=== PATIENT | male | born 1950 | race Caucasian/White ===

== ENCOUNTER 2024-01-12 13:17 | Outpatient (OUT) | payer OTHER, MEDICAID, SELFPAY | END 2024-01-12 13:18 | disposition home or self-care (01) | LOC: WC 13:18 | PROVIDERS: PCP Podiatrist Foot & Ankle Surgery; Visit Provider Physician Assistant | DX: R60.0 Localized edema (principal); L60.3 Nail dystrophy; E11.40 Type 2 diabetes mellitus with diabetic neuropathy, unspecified; E11.65 Type 2 diabetes mellitus with hyperglycemia; G90.09 Other idiopathic peripheral autonomic neuropathy | CPT/HCPCS: 11720 ==

== ENCOUNTER 2024-01-31 15:28 | Outpatient (OUT) | payer OTHER, MEDICAID, SELFPAY | END 2024-01-31 15:29 | disposition home or self-care (01) | LOC: WC 15:28 | PROVIDERS: PCP Podiatrist Foot & Ankle Surgery; Visit Provider Podiatrist Foot & Ankle Surgery | DX: Z89.612 Acquired absence of left leg above knee (principal) | CPT/HCPCS: G0463 ==

== ENCOUNTER 2025-03-28 13:51 | Outpatient (OUT) | payer OTHER, MEDICAID, SELFPAY ==
--- OUTSIDE RECORDS SUMMARY | 2025-03-22 15:41 | XMS_ITS | Continuity of Care Document ---
Author Organization [facility] Address [address] [place] [address] Phone Care Team Providers Care Line Decorator Name Role Phone Daisha Cadet DO Primary Care Provider Maye Villanueva MD Attending Provider Natasha Hernandez MD Attending Provider Ashley Zaldivar [employer] Attending Provider Daisha Cadet DO Other Provider Wilfred Trivedi MD Attending Provider [phone] Keegan Riddle MD Emergency Provider Mariposa Oliver Attending Provider Jamil Michaud MD Admit Provider Jamil Michaud MD Attending Provider Mariposa Oliver Other Provider Wilfred Trivedi MD Other Provider [phone] Care Teams Patient Care Team Team Status: Active Member Role Status Dates Daisha Cadet DO Primary Care Provider Active Visit Care Team Team Status: Active Member Role Status Dates Daisha Cadet DO Primary Care Provider Active Start: December 25, 2024 Maye Villanueva MD Attending Provider Active Star t: December 25, 2024 Visit Care Team Team Status: Active Member Role Status Dates Daisha Cadet DO Primary Care Provider Active Start: January 24, 2025 Natasha Hernandez MD Attending Provider Active Star t: January 24, 2025 Visit Care Team Team Status: Inactive Member Role Status Dates Daisha Cadet DO Primary Care Provider Active Start: March 05, 2025 End: March 05, 2025 OMARI AmbroseC Attending Provider Active Start: March 05, 2025 End: March 05, 2025 Visit Care Team Team Status: Active Member Role Status Dates Daisha Cadet DO Primary Care Provider Active Start: March 14, 2025 Daisha Cadet DO Other Provider Active S tart: March 14, 2025 Wilfred Trivedi MD Attending Provider Active S tart: March 14, 2025 Visit Care Team Team Status: Inactive Member Role Status Citlaly Cadet DO Primary Care Provider Active Start: March 20, 2025 End: March 20, 2025 Wilfred Trivedi MD Attending Provider Active S tart: March 20, 2025 End: March 20, 2025 Visit Care Team Team Status: Active Member Role Status Citlaly Cadet DO Primary Care Provider Active Start: March 20, 2025 Keegan Riddle MD Emergency Provider Active St art: March 20, 2025 Arnav Oliver MD Attending Provider Active Start : March 20, 2025 Visit Care Team Team Status: Inactive Member Role Status Citlaly Cadet DO Primary Care Provider Active Start: March 21, 2025 End: March 22, 2025 Keegan Riddle MD Emergency Provider Active St art: March 21, 2025 End: March 22, 2025 Jaiml Michaud MD Admit Provider Active Start: Michelle gutierrez 2024 End: March 22, 2025 Jamil Michaud MD Attending Provider Active Star t: March 21, 2025 End: March 22, 2025 Arnav Oliver MD Other Provider Active Start: Se mendoza 2024 End: March 22, 2025 Wilfred Trivedi MD Other Provider Active Start : March 21, 2025 End: March 22, 2025 Chief Complaint and Reason for Visit Chief Complaint Admit Date 1 year follow up; ESRD March 05 12:53pm R10.33 March 14, 2025 10:59am Chronic Kidney Disease March 20, 025 2:34pm sent over d/t fistula March 20 7:56pm sent over d/t fistula March 21 10:24am Reason for Visit Admit Date End-stage renal disease on hemodialysis March 05, 2025 12:53pm [facility] fistula malfunction [facility] 2024 10:59am Arteriovenous shunt malfunction [facility] 2024 10:24am Benign hypertension with end-stage renal disease March 21, 2025 10:24am [facility] End-stage renal disease (ESRD) March 21, 2025 10:24am End-stage renal disease on hemodialysis March 21, 2025 10:24am Secondary hyperparathyroidism March 21, 2025 10:24am Type 2 diabetes mellitus wit h diabetic chronic kidney disease March 21, 2025 10:24am Anemia of renal disease March 21, 2025 10:24am Reason for Referral Referring Provider Name Referring Provider Address Referring Provider Phone Referral Date Requested Appointment Date Referral Reason Wilfred Colliermarv [address] [phone] Work Phone: Call for appointment. You will need your sutures removed in 2 to 3 weeks. Jamil Michaud [address] [place] [address] Work Phone: Call if needed. Call for appointment. You will need your sutures removed in 2 to 3 weeks. Call if needed. Allergies, Adverse Reactions, Alerts Allergen Type Severity Reaction Last Updated Verified Status No Known Allergies Allergy Unknown Septem 2024 8:06pm Yes Active Social History Smoking Status Status Start Date End Date Date of Observa tion [facility] Observation Status Observation Response Date of Response Legal Sex Male (finding) Sex Assigned At Male [birth year] Social History Assessments Assessment Value Date Recorded SDOH Follow up March 22, 2025 4:19pm Question Answer Date Recorded Has the SDOH screening changed since admission? N March 22, 2025 4:19pm Family History Relationship Condition Age at Onset Recorded Date/T tiny family member Diabetes mellitus Unknown brother Malignant neoplasm of prostate Unknown Hypertension Unknown sister Hypertension Unknown father Parkinson's disease Unknown mother Lupus Unknown brother Hypertension Unknown sister Hypertension Unknown Problems Active Problems Medical Problem Onset Date Status Comments AMANDA (acute kidney injury) Unknown Active End-stage renal disease on hemodialysis Unknown A ctive Type 2 myocardial infarction Unknown Active Pressure injury of left buttock, stage 2 Unknown Active Low serum prealbumin Unknown Active Severe hyperglycemia due to diabetes mellitus Unknown Active Status 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 Unknown Active Insomnia Unknown Active Type 2 diabetes mellitus wit h diabetic chronic kidney disease Unknown Active Impaired mobility and ADLs Unknown Active DKA (diabetic ketoacidoses) Unknown Active Secondary hyperparathyroidism Unknown Active Sleep apnea Unknown Active has machine but not using Complications of internal or thopedic device, implant, and graft Unknown Active Anaerobic bacteremia Unknown Active Dialysis AV fistula malfunction Unknown Active Diabetes Unknown Active Diabetes mellitus Unknown Active HTN (hypertension), benign Unknown Active Arteriovenous shunt malfunction Unknown Active AV fistula Unknown Active left Dysuria Unknown Active Jaundice Unknown Active Benign hypertension with end -stage renal disease Unknown Active Rib contusion Unknown Active Postoperative pain Unknown Active Elevated troponin Unknown Active DVT prophylaxis Unknown Active Postoperative anemia Unknown Active PAD (peripheral artery disease) Unknown Active Fungal dermatitis Unknown Active Post-inflammatory hyperpigmentation Unknown Activ e Wheelchair dependence Unknown Active Dermatitis associated with moisture Unknown Activ e Anemia of renal disease Unknown Active Anemia of renal disease Unknown Active Impaired mobility Unknown Active Cholestasis Unknown Active End-stage renal disease (ESRD) Unknown Active Inactive/Resolved Problems Medical Problem Onset Date Status Comments UTI (urinary tract infection) Unknown Resolved Acute cystitis Unknown Resolved Left above-knee amputee Unknown Resolved COVID-19 Unknown Resolved Upper respiratory infection Unknown Resolved Complicated urinary tract infection Unknown Resol melquiades Rash Unknown Resolved Leukocytosis Unknown Resolved Atypical chest pain Unknown Resolved Acute metabolic encephalopathy Unknown Resolved Sepsis Unknown Resolved Viral upper respiratory infection Unknown Resolve d Acute UTI Unknown Resolved Change in mental status Unknown Resolved Asymptomatic hypertension Unknown Resolved Bedsore Unknown Resolved Nausea and vomiting Unknown Resolved Nausea and vomiting Unknown Resolved Nausea & vomiting Unknown Resolved Abdominal pain Unknown Resolved Hypertension Unknown Resolved Constipation Unknown Resolved Cellulitis of left foot Unknown Resolved Hyperkalemia Unknown Resolved Lactic acidosis Unknown Resolved Medications Medication Status Dose Units Route Directions Qty Days St art Date Stop Date End Date Instructions Adherence Amlodipine 10 mg tablet Discont inued 5 MG PO Daily 45 90 September 06, 2023 4:47pm November 16, 2023 6:20a m Pt states he only takes medication if systolic blood pressure is greater than 140mmhg, pt states that he does not take medication on days he has dialysis, MWF. Amlodipine 10 mg tablet Discont inued 0 .ROUTE .COMPLEX 45 Sept2023 4:35pm October 22, 2024 1:39p m TAKE 1/2 TABLET DAILY FOR HTN Furosemide 40 mg tablet Discont inued 0 .ROUTE .COMPLEX 180 Novemb er 2023 10:35p m September 09, 2024 12:51 pm TAKE 1 TABLET BY MOUTH TWICE A DAY Furosemide 40 mg tablet Discont inued 0 .ROUTE .COMPLEX 180 September 09, 2024 12:50p m November 27, 2024 4:15p m TAKE 1 TABLET BY MOUTH TWICE A DAY Furosemide 40 mg tablet Active 0 .ROUTE .COMPLEX 360 November 27, 2024 4:15pm TAKE 2 TABLETS BY MOUTH TWICE A DAY Complies with drug therapy Losartan 50 mg tablet Discont inued 50 MG PO Daily Novemb er 2018 1:00am 2018 3:23p m Docusate Sodium 100 mg Capsule Discont inued 100 MG PO Twice daily as needed for Constipatio n 0 er 2018 1:00am Dece 2018 10:17 am Aspirin 81 mg Tablet,Chew able Discont inued 81 MG PO Daily 0 30 b er 2018 1:00am osiris 2018 7:49p m Polyethylen e Glycol 3350 (Miralax) 17 gram Powder In Packet Discont inued 17 GM PO Daily 0 30 b er 2018 1:00am osiris 2018 7:49p m Insulin Detemir U-100 (Levemir Flextouch U100 Insulin) 100 unit/mL (3 mL) insulin pen Discont inued 15 UNIT SUBCUT Every evening er 2018 1:00am [facility] osiris 2018 10:17 am Insulin Aspart U-100 (Novolog Flexpen U-100 Insulin) 100 unit/mL (3 mL) Insulin Pen Discont inued 0 UNITS SUBCUT 3X/Day with meals and bedtime Protocol: *If the corrective scale dose has been administere d within the past 4 hours, do not use corrective scale again unless approved by prescriber* Condition: Corrective Scale #3 (TDI 51-75 UNITS) Condition: = Dose/Route: = Instruction s: = Condition: Fingerstick Blood Glucose Dose/Route: Insulin Units Condition: 150-199 mg/dl Dose/Route: 3 unit Condition: 200-249 mg/dl Dose/Route: 4 unit Condition: 250-299 mg/dl Dose/Route: 7 unit Condition: 300-349 mg/dl Dose/Route: 10 unit Condition: 350-399 mg/dl Dose/Route: 12 unit Condition: greater than or = 400 mg/dl Dose/Route: 14 unit Instruction s: Call Provider er 2018 1:00am Decem osiris 2018 10:17 am Please contact the information source for Protocol details. Piperacilli n-Tazobacta m (Zosyn) 2.25 gram recon soln Discont inued 2.25 GM IV Twice daily 1 1 b er 2018 1:00am Decem osiris 2018 10:17 am TOTAL OF 3 DOSES LEFT Amlodipine 10 mg tablet Discont inued 5 MG PO Daily December 17, 2020 12:00a m September 06, 2023 4:48p m Pt states he only takes medication if systolic blood pressure is greater than 140mmhg, pt states that he does not take medication on days he has dialysis, MWF. Sodium Zirconium Cyclosilica te (Lokelma) 10 gram powder in packet Discont inued 10 GM PO Daily December 17, 2020 12:00a m September 02, 2023 10:30 pm Ergocalcife rol (Vitamin D2) 50,000 unit capsule Discont inued 19396 UNIT PO Daily December 17, 2020 9:02pm Octob er 2020 3:55p m Furosemide 40 mg tablet Discont inued 40 MG PO Twice daily December 17, 2020 9:03pm Novem 2023 10:35 pm Tamsulosin 0.4 mg capsule Discont inued 0.4 MG PO Daily February 01, 2022 12:00a m September 02, 2023 10:30 pm Oxycodone 5 mg Tablet Discont inued 10 MG PO Every 6 hours as needed for Pain Scale 6 - 10 20 8 February 01, 2022 September 21, 2023 2:06p m Insulin Degludec (Tresiba Flextouch U-100) 100 unit/mL (3 mL) insulin pen Active 30 UNIT SUBCUT Daily at bedtime September 02, 2023 1:00am Complies with drug therapy Calcium Acetate 667 mg tablet Discont inued 667 MG PO Three times daily September 19, 2023 12:00a m October 22, 2024 12:53 pm take 1 tab with meals Ciprofloxac in Hcl (Cipro) 500 mg tablet Discont inued 500 MG PO Daily September 21, 2023 12:00a m October 27, 2023 12:11 pm administer dose at least 2 hrs before/6 hrs after dairy products, calcium, zinc, and/or iron-containi ng products Take one at bedtime the first night, then one tablet daily. Atorvastati n 20 mg tablet Discont inued 20 MG PO Every morning October 27, 2023 12:00a m October 22, 2024 1:39p m Doxycycline Hyclate 100 mg capsule Discont inued 100 MG PO Twice daily 10 5 October 27, 2023 12:00a m November 16, 2023 6:19a m Ondansetron 4 mg tablet,disi ntegrating Discont inued 4 MG PO Q6H as needed for nausea and vomiting October 27, 2023 12:00a m November 16, 2023 6:20a m Amitriptyli ne 25 mg tablet Discont inued 25 MG PO Daily Dece er 2023 1:00am October 22, 2024 1:39p m Triamcinolo ne Acetonide 0.1 % ointment Discont inued 1 APPLIC TOPICA L Twice daily 30 Decemb er 2023 1:00am Decem osiris 2023 1:00a m 2024 1:01a m Nystatin 100,000 unit/gram cream Discont inued 1 APPLIC TOPICA L Twice daily 2024 1:00am October 22, 2024 12:52 pm Azithromyci n (Zithromax) 250 mg tablet Discont inued 0 PO .COMPLEX 6 October 24, 2024 12:00a m Septe er 2024 2:59p m For 250 mg dose pack: take 500 mg today (day 1), then 250 mg for 4 days (days 2-5) Polyethylen e Glycol 3350 (Miralax) 17 gram powder in packet Discont inued 17 GM PO Every morning [facility] er 2018 7:49pm [facility] osiris 2018 10:17 am Aspirin 81 mg tablet,chew able Discont inued 81 MG PO Every morning [facility] er 2018 7:49pm [facility] osiris 2018 10:17 am Aspirin 81 mg Tablet,Chew able Discont inued 81 MG PO Every morning 30 [facility] er 2018 1:00am December 17, 2020 8:59p m Insulin Aspart U-100 (Novolog Flexpen U-100 Insulin) 100 unit/mL (3 mL) Insulin Pen Discont inued 0 UNITS SUBCUT 3X/Day with meals and bedtime Protocol: *If the corrective scale dose has been administere d within the past 4 hours, do not use corrective scale again unless approved by prescriber* Condition: Corrective Scale #2 (TDI 26-50 UNITS) Condition: = Dose/Route: = Instruction s: = Condition: Fingerstick Blood Glucose Dose/Route: Insulin Units Condition: 150-199 mg/dl Dose/Route: 2 unit Condition: 200-249 mg/dl Dose/Route: 3 unit Condition: 250-299 mg/dl Dose/Route: 5 unit Condition: 300-349 mg/dl Dose/Route: 7 unit Condition: 350-399 mg/dl Dose/Route: 8 unit Condition: greater than or = 400 mg/dl Dose/Route: 9 unit Instruction s: Call Provider 10 [facility] 2018 1:00am Oct er 2020 4:00p m Please contact the information source for Protocol details. Insulin Detemir U-100 (Levemir Flextouch U-100 Insuln) 100 unit/mL (3 mL) Insulin Pen Discont inued 22 UNITS SUBCUT Every evening 10 [facility] er 2018 1:00am Oct er 2020 4:00p m Polyethylen e Glycol 3350 (Miralax) 17 gram Powder In Packet Discont inued 17 GM PO Every morning 30 [facility] 2018 1:00am December 17, 2020 9:01p m Amlodipine 5 mg Tablet Discont inued 5 MG PO Daily 30 [facility] er 2018 1:00am December 17, 2020 8:59p m Balsam Bushra-Beaver Oil (Venelex) Ointment Discont inued 1 APPLIC TOPICA L Three times daily 5 [facility] 2018 1:00am December 17, 2020 9:01p m Calcium Acetate(Pato sphat Bind) 667 mg Capsule Discont inued 1334 MG PO 3x/Day with meals 90 [facility] 2018 1:00am December 17, 2020 9:00p m Darbepoetin Luis In Polysorbat (Aranesp (In Polysorbate )) 40 mcg/mL Solution Discont inued 40 MCG IV-PUS H Mo@0900 0 [facility] 2018 1:00am December 17, 2020 8:59p m Furosemide 40 mg Tablet Discont inued 40 MG PO BID@0800,16 00 30 [facility] 2018 1:00am December 17, 2020 9:03p m Sennosides (Senna Lax) 8.6 mg Tablet Discont inued 2 TAB PO DAILY@12 as needed for If no BM in 2 days 60 [facility] er 2018 1:00am December 17, 2020 9:01p m Heparin (Porcine) 1,000 unit/mL Solution Discont inued 1000 UNIT IV PRN as needed for Dialysis 0 [facility] 2018 1:00am December 17, 2020 9:01p m Heparin (Porcine) 1,000 unit/mL Solution Discont inued 4100 UNIT IV PRN as needed for Dialysis 0 [facility] 2018 1:00am December 17, 2020 9:01p m Heparin (Porcine) 1,000 unit/mL Solution Discont inued 2000 UNIT IV PRN as needed for Dialysis 0 [facility] 2018 1:00am December 17, 2020 9:01p m Trazodone 50 mg Tablet Discont inued 50 MG PO Daily at bedtime as needed for Insomnia 20 [facility] 2018 1:00am December 17, 2020 9:01p m Hydrocortis one 1 % Cream Discont inued 1 APPLIC TOPICA L Three times daily as needed for Itching 5 [facility] 2018 1:00am December 17, 2020 9:01p m Diphenhydra mine Hcl 25 mg Capsule Discont inued 25 MG PO Q6H as needed for Itching 30 [facility] 2018 1:00am December 17, 2020 8:59p m Docusate Sodium 100 mg Capsule Discont inued 100 MG PO Twice daily 60 [facility] er 2018 1:00am December 17, 2020 9:01p m Omeprazole 20 mg Capsule,Del ayed Release(Dr/ Ec) Discont inued 40 MG PO Daily 30 [facility] 2018 1:00am December 17, 2020 9:01p m Ergocalcife rol (Vitamin D2) 50,000 unit Capsule Discont inued 19959 UNIT PO Q7D 4 [facility] 2018 1:00am December 17, 2020 9:02p m Alum-Mag Hydroxide-S imeth (Mag-Al Plus) 200-200-20 mg/5 mL Suspension Discont inued 30 ML PO Q4H as needed for Indigestion 30 [facility] er 2018 1:00am December 17, 2020 9:01p m Ondansetron 4 mg Tablet,Disi ntegrating Discont inued 4 MG PO Every 6 hours as needed for Nausea And Vomiting 60 [facility] er 2018 1:00am December 17, 2020 9:01p m Metoclopram zeke Hcl 10 mg Tablet Discont inued 5 MG PO Three times daily as needed for nausea 60 Decemb er 2018 1:00am December 17, 2020 9:01p m Oxycodone 5 mg Tablet Discont inued 5 MG PO Q4H as needed for Severe Pain 30 7 Dece er 2018December 17, 2020 9:01p m Cholecalcif juanjose (Vitamin D3) (Vitamin D3) 50 mcg (2,000 unit) Tablet Discont inued 50 MCG PO Daily [facility] 2020 12:00a m September 02, 2023 10:26 pm Insulin Aspart U-100 (Novolog Flexpen U-100 Insulin) 100 unit/mL (3 mL) insulin pen Active 1 slidin g scale dose SUBCUT THREE TIMES DAILY WITH MEALS Protocol: *If the corrective scale dose has been administere d within the past 4 hours, do not use corrective scale again unless approved by prescriber* Condition: Corrective Scale #2 (TDI 26-50 UNITS) Condition: = Dose/Route: = Instruction s: = Condition: Fingerstick Blood Glucose Dose/Route: Insulin Units Condition: 150-199 mg/dl Dose/Route: 2 unit Condition: 200-249 mg/dl Dose/Route: 3 unit Condition: 250-299 mg/dl Dose/Route: 5 unit Condition: 300-349 mg/dl Dose/Route: 7 unit Condition: 350-399 mg/dl Dose/Route: 8 unit Condition: greater than or = 400 mg/dl Dose/Route: 9 unit Instruction s: Call Provider [facility] 2020 4:00pm Please contact the information source for Protocol details. Complies with drug therapy Insulin Detemir U-100 (Levemir Flextouch U-100 Insuln) 100 unit/mL (3 mL) insulin pen Discont inued 30 UNITS SUBCUT Every evening [facility] 2020 4:00pm September 19, 2023 11:31 am Metolazone 2.5 mg tablet Discont inued 2.5 MG PO every Tuesday, Tuesday[facility] 12[facility] September 02, 2023 10:29 pm Ferrous Sulfate 325 mg (65 mg iron) tablet Discont inued 325 MG PO every Tuesday, Tuesday, and [facility] 12:00a m September 02, 2023 10:26 pm Amlodipine 10 mg tablet Discont inued 5 MG PO Daily as needed for htn November 16, 2023 12:00a m [facility] 2023 4:35p m Pt states he only takes medication if systolic blood pressure is greater than 140mmhg, pt states that he does not take medication on days he has dialysis, MWF. Oxycodone-A cetaminophe n (Percocet) 5-325 mg tablet Discont inued 1 TAB PO Every 8 hours as needed for pain 14 7 November 17, 2023 October 22, 2024 12:52 pm Calcium Acetate(Pato sphat Bind) 667 mg capsule Active 2001 MG PO 3 times per day with meals October 22, 2024 12:00a m Complies with drug therapy Benzonatate 100 mg capsule Discont inued 100 MG PO Twice daily as needed for cough 10 5 October 22, 2024 12:[facility]a [facility] 2:59p m Fluticasone Propionate (Flonase Allergy Relief) 50 mcg/actuati on spray,suspe nsion Discont inued 1 SPRAY INTRAN JAVI Twice daily as needed for nasal congestion 16 7 October 22, 2024 12:00[facility]24 3:00p m administer into each nostril Immunizations Immunization Event Date Not Given Reason Dose Number Operations Director Lot Number Vaccine Information Statement (VIS) Detail Administration Location COVID-19 mRNA-1273 (Moderna) August 21, 2020 [id number] [facility] COVID-19 mRNA-1273 (Moderna) May 19, 2021 COVID-19 mRNA-1273 (Moderna) January 26, 2022 COVID-19 mRNA-1273 (Moderna) September 18, 2020 [id number] [facility] Medical Equipment Device Date Implanted Date Explanted Device Deta ils Cardiovascular patch, animal-derived November 15, 2023 MISAEL: [id number] Issuing Agency: [facility] Device Id: [id number] Expiration Date: 2024-06-18 Lot Number: [id number] Non-neurovascular embolization coil November 03, 2021 MISAEL: [id number] Issuing Agency: [facility] Device Id: [id number] Expiration Date: 2026-07-07 Lot Number: [id number] Non-neurovascular embolization coil November 03, 2021 MISAEL: [id number] Issuing Agency: [facility] Device Id: [id number] Expiration Date: 2026-07-07 Lot Number: [id number] Non-neurovascular embolization coil November 03, 2021 MISAEL: ()[id number] Issuing Agency: [facility] Device Id: [id number] Expiration Date: 2025-11-07 Lot Number: [id number] Non-neurovascular embolization coil November 03, 2021 MISAEL: ()[id number] Issuing Agency: [facility] Device Id: [id number] Expiration Date: 2025-11-07 Lot Number: [id number] Non-neurovascular embolization coil November 03, 2021 MISAEL: [id number] Issuing Agency: [facility] Device Id: [id number] Expiration Date: 2026-05-06 Lot Number: [id number] May 24, 2019 Double-lumen haemodialysis catheter, implantable November 16, 2023 MISAEL: [id number] Issuing Agency: [facility] Device Id: [id number] Expiration Date: 2026-03-03 Lot Number: [id number] May 14, 2019 May 24, 2019 Procedures Procedure Date Performed Status OR AV Fistula Dialysis Graft (Left) March 202024 4:55pm completed IR Catheter Dialysis Insertion (Right) March 21, 2025 10:05am completed OR AV Fistula Dialysis Graft (Left) March 222024 8:30am completed Relevant Diagnostic Tests and/or Laboratory Data Laboratory Results Test Collection Date/Time Result Date/Time Result Interpretation Reference Range Result Comment Performing Site Corrected White Blood Count March 20, 2025 3:19pm March 20, 2025 3:31pm 7.5 10*3/uL 4.1-10.5 [facility] [id number] [address] [id number] Corrected White Blood Count March 22, 2025 6:58am March 22, 2025 7:12am 6.8 10*3/uL 4.1-10.5 [facility] [id number] [address] [place], [place] [id number] Uncorrect ed WBC Count March 20, 2025 3:19pm March 20, 2025 3:31pm 7.5 10*3/uL 4.1-10.5 [facility] [id number] [address] [id number] Uncorrect ed WBC Count March 22, 2025 6:58am March 22, 2025 7:12am 6.8 10*3/uL 4.1-10.5 [facility] [id number] [address] [place], [place] [id number] Red Blood Count March 20, 2025 3:19pm March 20, 2025 3:31pm 3.91 10*6/uL 3.90-5.60 [facility] [id number] [address] [id number] Red Blood Count March 22, 2025 6:58am March 22, 2025 7:12am 3.59 10*6/uL Below low normal 3.90-5.60 [facility] [id number] [address] [id number] Hemoglobi n March 20, 2025 3:19pm March 20, 2025 3:31pm 11.6 g/dL Below low normal 13.0-17.0 [facility] [facility] [id number] [address] [id number] Hemoglobi n March 22, 2025 6:58am March 22, 2025 7:12am 10.7 g/dL Below low normal 13.0-17.0 [facility] [id number] [address] [facility] [address] Hematocri t March 20, 2025 3:19pm March 20, 2025 3:31pm 35.0 % Below low normal 38.8-50.0 [facility] [id number] [address] [facility] [address] Hematocri t March 22, 2025 6:58am March 22, 2025 7:12am 31.8 % Below low normal 38.8-50.0 [facility] [id number] [address] [facility] [address] Mean Corpuscul ar Volume March 20, 2025 3:19pm March 20, 2025 3:31pm 89.5 fL 83.5-101 [facility] [id number] [address] [facility] [address] Mean Corpuscul ar Volume March 22, 2025 6:58am March 22, 2025 7:12am 88.6 fL 83.5-101 [facility] [id number] [address] [facility] [address] Mean Corpuscul ar Hemoglobi n March 20, 2025 3:19pm March 20, 2025 3:31pm 29.6 pg 27.5-35.2 [facility] [id number] [address] [facility] [address] Mean Corpuscul ar Hemoglobi n March 22, 2025 6:58am March 22, 2025 7:12am 29.7 pg 27.5-35.2 [facility] [id number] [address] [facility] [address] Mean Corpuscul ar Hemoglobi n Concent March 20, 2025 3:19pm March 20, 2025 3:31pm 33.0 g/dL 32.5-35.6 [facility] [id number] [address] [facility] [address] Mean Corpuscul ar Hemoglobi n Concent March 22, 2025 6:58am March 22, 2025 7:12am 33.6 g/dL 32.5-35.6 [facility] [id number] [address] [facility] [address] Red Cell Distribut ion Width March 20, 2025 3:19pm March 20, 2025 3:31pm 15.0 % Above high normal 12.0-14.8 [facility] [id number] [address] [facility] [address] Red Cell Distribut ion Width March 22, 2025 6:58am March 22, 2025 7:12am 15.0 % Above high normal 12.0-14.8 [facility] [id number] [address] [facility] [address] Platelet Count March 20, 2025 3:19pm March 20, 2025 3:31pm 239 10*3/uL 150-450 [facility] [id number] [address] [facility] [address] Platelet Count March 22, 2025 6:58am March 22, 2025 7:12am 179 10*3/uL 150-450 [facility] [id number] [address] [facility] [address] Mean Platelet Volume March 20, 2025 3:19pm March 20, 2025 3:31pm 9.4 fL 6.6-10.1 [facility] [id number] [address] [facility] [address] Mean Platelet Volume March 22, 2025 6:58am March 22, 2025 7:12am 9.4 fL 6.6-10.1 [facility] [id number] [address] [facility] [address] Neutrophi ls (%) (Auto) March 20, 2025 3:19pm March 20, 2025 3:31pm 66.0 % . [facility] [id number] [address] [facility] [address] Neutrophi ls (%) (Auto) March 22, 2025 6:58am March 22, 2025 7:12am 64.3 % . [facility] [id number] [address] [facility] [address] Lymphocyt es (%) (Auto) March 20, 2025 3:19pm March 20, 2025 3:31pm 19.3 % . [facility] [id number] [address] [facility] [address] Lymphocyt es (%) (Auto) March 22, 2025 6:58am March 22, 2025 7:12am 19.4 % . [facility] [id number] [address] [place] [address] Monocytes (%) (Auto) March 20, 2025 3:19pm March 20, 2025 3:31pm 6.0 % . [facility] [id number] [address] [facility] [address] Monocytes (%) (Auto) March 22, 2025 6:58am March 22, 2025 7:12am 7.7 % . [facility] [id number] [address] [facility] [address] Eosinophi ls (%) (Auto) March 20, 2025 3:19pm March 20, 2025 3:31pm 8.0 % . [facility] [id number] [address] [facility] [address] Eosinophi ls (%) (Auto) March 22, 2025 6:58am March 22, 2025 7:12am 7.7 % . [facility] [id number] [address] [facility] [address] Basophils (%) (Auto) March 20, 2025 3:19pm March 20, 2025 3:31pm 0.7 % . [facility] [id number] [address] [facility] [address] Basophils (%) (Auto) March 22, 2025 6:58am March 22, 2025 7:12am 0.9 % . [facility] [id number] [address] [facility] [address] Nucleated RBC Relative Count (auto) March 20, 2025 3:19pm March 20, 2025 3:31pm 0.1 /100{WBC } 0-0.5 [facility] [id number] [address] [facility] [address] Nucleated RBC Relative Count (auto) March 22, 2025 6:58am March 22, 2025 7:12am 0.1 /100{WBC } 0-0.5 [facility] [id number] [address] [facility] [address] Neutrophi ls # (Auto) March 20, 2025 3:19pm March 20, 2025 3:31pm 5.0 10*3/uL 1.8-7.7 [facility] [id number] [address] [facility] [address] Neutrophi ls # (Auto) March 22, 2025 6:58am March 22, 2025 7:12am 4.4 10*3/uL 1.8-7.7 [facility] [id number] [address] [facility] [address] Lymphocyt es # (Auto) March 20, 2025 3:19pm March 20, 2025 3:31pm 1.5 10*3/uL 1.00-4.8 [facility] [id number] [address] [facility] [address] Lymphocyt es # (Auto) March 22, 2025 6:58am March 22, 2025 7:12am 1.3 10*3/uL 1.00-4.8 [facility] [id number] [address] [facility] [address] Monocytes # (Auto) March 20, 2025 3:19pm March 20, 2025 3:31pm 0.5 10*3/uL 0.0-0.8 [facility] [id number] [address] [facility] [address] Monocytes # (Auto) March 22, 2025 6:58am March 22, 2025 7:12am 0.5 10*3/uL 0.0-0.8 [facility] [id number] [address] [facility] [address] Eosinophi ls # (Auto) March 20, 2025 3:19pm March 20, 2025 3:31pm 0.6 10*3/uL Above high normal 0.0-0.45 [facility] [id number] [address] [place] [address] Eosinophi ls # (Auto) March 22, 2025 6:58am March 22, 2025 7:12am 0.5 10*3/uL Above high normal 0.0-0.45 [facility] [id number] [address] [facility] [address] Basophils # (Auto) March 20, 2025 3:19pm March 20, 2025 3:31pm 0.1 10*3/uL 0.0-0.2 [facility] [id number] [address] [place] [address] Basophils # (Auto) March 22, 2025 6:58am March 22, 2025 7:12am 0.1 10*3/uL 0.0-0.2 [facility] [id number] [address] [place] [address] Glucose Level March 20, 2025 3:19pm March 20, 2025 3:51pm 323 mg/dL Above high normal 70-100 ADA recommended reference rangeRandom Glucose Reference Range is dependent on time and content of last meal. Glucose of more than 200 mg/dL in a nonstressed , ambulatory subject supports the diagnosis of Diabetes Mellitus. [facility] [id number] [address] [place] [address] Glucose Level March 22, 2025 3:50am March 22, 2025 4:35am 240 mg/dL Above high normal 70-100 ADA recommended reference rangeRandom Glucose Reference Range is dependent on time and content of last meal. Glucose of more than 200 mg/dL in a nonstressed , ambulatory subject supports the diagnosis of Diabetes Mellitus. [facility] [id number] [address] [place] [address] Blood Urea Nitrogen March 20, 2025 3:19pm March 20, 2025 3:51pm 75 mg/dL Above high normal 01-25 [facility] [id number] [address] [place] [address] Blood Urea Nitrogen March 22, 2025 3:50am March 22, 2025 4:36am 44 mg/dL Significant change up 7 Delta: 75 on 03/20/25- 58 [facility] [id number] [address] [place] [address] Creatinin e March 20, 2025 3:19pm March 20, 2025 3:51pm 5.70 mg/dL Above high normal 0.70-1.30 [facility] [id number] [address] [place], [place] [address] [place] [address] Creatinin e March 22, 2025 3:50am March 22, 2025 4:36am 4.12 mg/dL Significant change up 0.70-1.30 Delta: 6.11 on 03/20/25- 58 [facility] [id number] [address] [facility] [address] Estimated GFR (CKD-EPI) March 20, 2025 3:19pm March 20, 2025 3:51pm 9.843 mL/Min [facility] [id number] [address] [place], [place] [address] Estimated GFR (CKD-EPI) March 22, 2025 3:50am March 22, 2025 4:35am 14.532 mL/Min [facility] [id number] [address] [place], [place] [address] Sodium Level March 20, 2025 3:19pm March 20, 2025 3:51pm 133 mmol/L Below low normal 136-145 [facility] [id number] [address] [place], [place] [address] Sodium Level March 22, 2025 3:50am March 22, 2025 4:35am 130 mmol/L Below low normal 136-145 [facility] [id number] [address] [place], [place] [address] Potassium Level March 20, 2025 3:19pm March 20, 2025 3:51pm 6.1 mmol/L Above upper panic limits 3.5-5.1 Critical Result Called to and read back by: TRENT WAGNER at: 03/20/2025 15:51:13 by:BP [facility] [id number] [address] [place], [place] [address] Potassium Level March 22, 2025 3:50am March 22, 2025 4:35am 4.6 mmol/L 3.5-5.1 [facility] [id number] [address] [place] [address] Chloride Level March 20, 2025 3:19pm March 20, 2025 3:51pm 105 mmol/L 98-107 [facility] [id number] [address] [place], [place] [address] Chloride Level March 22, 2025 3:50am March 22, 2025 4:35am 96 mmol/L Below low normal 98-107 [facility] [id number] [address] [facility] [address] Carbon Dioxide Level March 20, 2025 3:19pm March 20, 2025 3:51pm 20.3 mmol/L Below low normal 21.0-31.0 [facility] [id number] [address] [facility] [address] Carbon Dioxide Level March 22, 2025 3:50am March 22, 2025 4:35am 26.8 mmol/L 21.0-31.0 [facility] [id number] [address] [address]2870 Anion Gap March 20, 2025 3:19pm March 20, 2025 3:51pm 13.8 mEq/L 6.0-15.0 [facility] [id number] [address] 9[address]2870 Anion Gap March 22, 2025 3:50am March 22, 2025 4:35am 11.8 mEq/L 6.0-15.0 [facility] [id number] [address] [facility] [address] Calcium Level March 20, 2025 3:19pm March 20, 2025 3:51pm 9.6 mg/dL 8.6-10.3 [facility] [id number] [address] [place], [place] [address] Calcium Level March 22, 2025 3:50am March 22, 2025 4:35am 9.1 mg/dL 8.6-10.3 [facility] [id number] [address] [place] [address] Phosphoru s Level March 22, 2025 3:50am March 22, 2025 4:35am 5.2 mg/dL Above high normal 2.5-4.5 [facility] [id number] [address] [facility] [address] Albumin March 22, 2025 3:50am March 22, 2025 4:35am 3.5 g/dL 3.5-5.7 [facility] [id number] [address] [place], [place] [address] Pharmacy Creatinin e Clearance (Chem March 20, 2025 3:19pm March 20, 2025 3:51pm 14.82 [facility] [id number] [address] [id number] Pharmacy Creatinin e Clearance (Chem March 22, 2025 3:50am March 22, 2025 4:35am 20.68 [facility] [id number] [address] [place], [place] [address] Bedside Sodium March 20, 2025 3:19pm March 20, 2025 3:27pm 135 mmol/L Below low normal 138-146 [facility] [id number] [address] [place], [place] [address] Bedside Potassium March 20, 2025 3:19pm March 20, 2025 3:27pm 6.0 mmol/L Above high normal 3.5-4.9 [facility] [id number] [address] [place], [place] [address] Bedside Total CO2 March 20, 2025 3:19pm March 20, 2025 3:27pm 21 mmol/L Below low normal 23-29 [facility] [id number] [address] [place], [place] [address] Bedside Ionized Calcium (Raquel) March 20, 2025 3:19pm March 20, 2025 3:27pm 1.32 mol/L 1.12-1.32 [facility] [id number] [address] [place], [place] [address] Bedside Hematocri t March 20, 2025 3:19pm March 20, 2025 3:27pm 35.0 % Below low normal 38.0-51.0 [facility] [id number] [address] [place], [place] [address] Bedside Hemoglobi n March 20, 2025 3:19pm March 20, 2025 3:27pm 11.9 g/dL Below low normal 12.0-17.0 [facility] [id number] [address] [place], [place] [address] Bedside Blood Gas pH (LAB) March 20, 2025 3:19pm March 20, 2025 3:27pm 7.322 Units 7.31-7.45 [facility] [id number] [address] [address] Bedside Blood Gas pCO2 (LAB) March 20, 2025 3:19pm March 20, 2025 3:27pm 37.5 mm[Hg] 35-51 [facility] [id number] [address] [facility] [address] Bedside Blood Gas pO2 (LAB) March 20, 2025 3:19pm March 20, 2025 3:27pm 33 mm[Hg] Below low normal 80-105 [facility] [id number] [address] [facility] [address] Bedside Blood Gas HCO3 (LAB) March 20, 2025 3:19pm March 20, 2025 3:27pm 19.4 mmol/L Below low normal 22.0-28.0 [facility] [id number] [address] [facility] [address] Bedside Blood Gas Std Base Excess March 20, 2025 3:19pm March 20, 2025 3:27pm -7 mmol/L Below low normal -2-3 [facility] [id number] [address] [facility] [address] Bedside Blood Gas O2 Saturatio n March 20, 2025 3:19pm March 20, 2025 3:27pm 60 % Below low normal 95-98 Reference ranges reflect baseline specimens only [facility] [id number] [address] [facility] [address] Bedside Glucose March 20, 2025 7:23pm March 20, 2025 7:29pm 276 mg/dL Random Glucose Reference Range is dependent on time and content of last meal. Glucose of more than 200 mg/dL in a nonstressed , ambulatory subject supports the diagnosis of Diabetes Mellitus. Point of Care testing Bedside Glucose March 22, 2025 4:34pm March 22, 2025 4:35pm 145 mg/dL Random Glucose Reference Range is dependent on time and content of last meal. Glucose of more than 200 mg/dL in a nonstressed , ambulatory subject supports the diagnosis of Diabetes Mellitus. Point of Care testing POC Whole Blood Glucose March 20, 2025 3:19pm March 20, 2025 3:27pm 314 mg/dL Above high normal 70-105 [facility] [id number] [address] [facility] [address] Bedside Glucose Comment March 20, 2025 5:37pm March 20, 2025 5:44pm Glu2: cleaned meter Point of Care testing Bedside Glucose Comment March 21, 2025 4:19pm March 21, 2025 4:22pm Glu2: cleaned meter Point of Care testing Vital Signs Vital Reading Result Reference Range Collection Date/Time Height 71 [in_i] March 05, 2025 1:12pm Weight 113.00 kg March 05, 2025 1:12pm Body Temperature 98.1 [degF] 97.6-99.0 March 052024 1:12pm Heart Rate 64 /min 60-100 March 05, 2025 1:12pm Respiratory rate 20 /min 12-March 052024 1:12pm Oxygen saturation by Pulse oximetry 97 % 95-100 March 05, 2025 1:12pm BP Systolic 130 mm[Hg] 100-140 March 05, 2025 1:12pm BP Diastolic 84 mm[Hg] 60-100 March 05, 2025 1:12pm BMI (Body Mass Index) 34.7 kg/m2 2024 1:12pm Height 71 [in_i] March 20, 2025 2:40pm Weight 114.00 kg March 20, 2025 2:40pm Body Temperature 98.2 [degF] 97.6-99.0 March 042024 2:40pm Heart Rate 63 /min 60-100 March 20, 2025 6:05pm Respiratory rate 16 /min -March 042024 6:05pm Oxygen saturation by Pulse oximetry 95 % 95-100 March 20, 2025 6:05pm BP Systolic 105 mm[Hg] 100-140 March 20, 2025 6:05pm BP Diastolic 54 mm[Hg] 60-100 March 20, 2025 6:05pm Inhaled oxygen flow rate 8 L/min [facility] 2024 5:35pm Height 71 [in_i] March 21, 2025 2:35pm Weight 116.80 kg March 22, 2025 5:57am Body Temperature 98.8 [degF] 97.6-99.0 March 042024 3:17pm Heart Rate 84 /min 60-100 March 22, 2025 3:17pm Respiratory rate 16 /min -March 042024 3:17pm Oxygen saturation by Pulse oximetry 99 % 95-100 March 22, 2025 3:17pm BP Systolic 120 mm[Hg] 100-140 March 22, 2025 3:17pm BP Diastolic 67 mm[Hg] 60-100 March 22, 2025 3:17pm Inhaled oxygen flow rate 6 L/min [facility] 2024 9:38am Advance Directives Advance Directive Response Recorded Date/ Time Advance Directives No April 24, 2019 10:23am Insurance Providers Guarantor Cash Valle Address [address] [place] [id number] Contact Info. Home Phone: [phone] Payer Policy Id Subscriber's Name Subscriber Id Effectiv e Date Expiration Date [place] [employer] [id number] Medicaid [id number] Cash Valle [id number] Encounters Encounter Location(s) Arrival/Admit Date Discharge/Depart Date Provider(s) [place] / [place] [place] 25, 2024 5:00am Maye Villanueva MD Non-patient / Non-visit [place] [place] January 24, 2025 6:00am Natasha Hernandez MD Departed Physician/Provi jimy Office Visit -[facility] March 05, 2025 12:53pm March 05, 2025 1:39pm Ashley Zaldivar APRN Non-patient / Non-visit -[facility] March 14, 2025 10:59am Wilfred Trivedi MD Departed Surgical Day Care [facility] March 20, 2025 2:34pm March 20, 2025 7:55pm Wilfred Trivedi MD Non-patient / Non-visit -[facility] March 20, 2025 7:56pm Arnav Oliver MD Discharged Inpatient -[facility] [place] [facility] March 21, 2025 10:24am March 22, 2025 7:40pm Jamil Michaud MD Recent Diagnosis Onset Date Admit Date End-stage renal disease on hemodialysis Unknown March 05, 2025 12:53pm PAD (peripheral artery disease) Unknown March 05, 2025 12:53pm Dialysis AV fistula malfunction Unknown March 14, 2025 10:59am Arteriovenous shunt malfunction Unknown March 21, 2025 10:24am Benign hypertension with end -stage renal disease Unknown March 21, 2025 10:24am Dialysis AV fistula malfunction Unknown March 21, 2025 10:24am End-stage renal disease (ESRD) Unknown S eptember 2024 10:24am End-stage renal disease on hemodialysis Unknown March 21, 2025 10:24am Secondary hyperparathyroidism Unknown Se ptember 2024 10:24am Type 2 diabetes mellitus wit h diabetic chronic kidney disease Unknown March 21, 2025 10:24am Anemia of renal disease Unknown Septembe r 2024 10:24am Functional Status Observation Response Date Recorded Dressing Patient at Baseline March 212024 1:34pm Eating Patient at Baseline March 212024 1:34pm Bathing Patient at Baseline March 212024 1:34pm Disability Status Patient at Baseline March 21, 2025 1:34pm Mental Status Observation Response Date Recorded Cognitive Status Patient at Baseline March 042024 1:34pm Cognitive/Mental Status Assessments Assessments Diagnosis Onset Date Resolution Status Admit Date End-stage renal disease on hemodialysis acute March 05 12:53pm PAD (peripheral artery disease) acut e March 05, 2025 12:53pm Dialysis AV fistula malfunction acut e March 14, 2025 10:59am Arteriovenous shunt malfunction acut e March 21, 2025 10:24am Benign hypertension with end-stage renal disease acute r 2024 10:24am Dialysis AV fistula malfunction acut e March 21, 2025 10:24am End-stage renal disease (ESRD) acute March 21, 2025 10:24am End-stage renal disease on hemodialysis acute March 21, 2025 10:24am Secondary hyperparathyroidism acute March 21, 2025 10:24am Type 2 diabetes mellitus wit h diabetic chronic kidney disease acute March 21, 2025 10:24am Anemia of renal disease chronic S epteer 2024 10:24am Plan of Treatment Author Ashley Zaldivar [facility] Authored March 05, 2025 3:17pm Patent left Reagan fistula. He has dialysis 3 times a week at the [facility] outpatient dialysis on [facility]. Will continue to follow him along annually, he knows to call us with any issues or concerns along the way. He does not have any ischemic pain or tissue loss. He has known moderate peripheral arterial disease. Noninvasive arterial studies are unreliable due to incompressibility of vessels. He does not ambulate therefore does not claudicate. He does not have any evidence of limb threat at this time. In the absence of any ischemic pain or tissue loss there is no indication for intervention. Future Tests Future scheduled test information is unavailable Pending Tests Pending diagnostic test information is unavailable Future Visits Future appointment information is unavailable Referrals to Other Providers Reason for Referral Referral Start Date Provider Provider Contact Information Provider Address Call for appointment. You will need your sutures removed in 2 to 3 weeks. Wilfred Trivedi MD Work Phone: [address] [facility] [address] Wilfred Trivedi MD Work Phone: [address] [facility] [address] Call if needed. Mirella Perez DO Work Phone: [address] [facility] [address] Future Procedures Procedure Name Ordered Date Scheduled Date Discharge Order March 20, 2025 5:36pm March 20, 2025 5:36pm Consult to Occupational Therapy [facility] 2024 2:12pm March 21, 2025 2:12pm Consult to Physical Therapy March 212024 2:12pm March 21, 2025 2:12pm Admit Status Order March 21, 2025 10:24am March 21, 2025 10:24am Consult to Nephrology March 21 2:33pm March 21, 2025 2:33pm Contraindication No VTE Prophylaxis March 21, 2025 2:12pm March 21, 2025 2:15pm Consult to Vascular Surgery March 212024 2:09pm March 21, 2025 2:09pm Future Medications Future medication information is unavailable Patient Instructions Instruction Admit Date Know your Meds March 21, 2025 10:24am Goals Acute Goals Author Authored Date Experience reduced anxiety * Identifies current stressors * Develops effective coping behaviors * Uses support services as appropriate Дмитрий Reza [facility] March 20, 2025 8:18pm Remain free of complications [facility] March 20, 2025 8:18pm Understand preop/postop care/sensations * Verbalizes understanding of surgical procedure * Verbalizes understanding of sensations following surgery * Verbalizes understanding of post-op treatment plan [facility] March 20, 2025 8:18pm Report pain at tolerable lev el * Uses pain scale appropriately * Identify options for pain control - Analgesics - Narcotics - Non-medication measures [facility] March 20, 2025 8:18pm Absence of imbalanced fluid volume s/s [facility] March 20, 2025 8:18pm Absence of physical injury [facility] March 20, 2025 8:18pm Absence of surgical site infection [facility] March 20, 2025 8:18pm Exhibit optimal tissue perfu willow * Exhibits adequate oxygenation and ventilation * Exhibits adequate cardiac output * Regains stable cardiac rhythm * Maintains optimal activity level * Maintains balanced intake and output [facility] March 22, 2025 7:40pm Maintain/increase activity levels * Understands factors that may lead to activity intolerance * Helps perform self care activities * Maintains maximum range of motion * Increase/regain muscle mass and strength * Maintains VS WNL during activity * Maintain intact skin integrity Updated: 08/16/2022 [facility] March 22, 2025 7:40pm Absence of new skin breakdow n [facility] March 22, 2025 7:40pm Wound healing [facility] March 22, 2025 7:40pm Fall Prevention 2022 [facility] March 22, 2025 7:40pm Experience reduced anxiety * Identifies current stressors * Develops effective coping behaviors * Uses support services as appropriate [facility] March 22, 2025 7:40pm Remain free of complications [facility] March 22, 2025 7:40pm Understand preop/postop care/sensations * Verbalizes understanding of surgical procedure * Verbalizes understanding of sensations following surgery * Verbalizes understanding of post-op treatment plan [facility] Ioana 19th, 2025 7:40pm Report pain at tolerable lev el * Uses pain scale appropriately * Identify options for pain control - Analgesics - Narcotics - Non-medication measures [facility] March 22, 2025 7:40pm Absence of imbalanced fluid volume s/s [facility] March 22, 2025 7:40pm Absence of physical injury [facility] March 22, 2025 7:40pm Absence of surgical site infection [facility] March 22, 2025 7:40pm Preferences Type Detail Treatment Intervention Code Status: Full Code Hospital Discharge Instructions Additional Instructions Monitor glucose levels as before Continue hemodialysis treatments as before Change dressing every 3 days: *Left buttock stage 2 pressure injury- Clean with Theraworx protect foam and pat dry. Apply Mepilex border foam for added protection. Consultation Note Author Arnav Oliver [facility] Note Date/Time March 21, 2025 12:01pm [facility] [address] [place] [address] Nephrology Consult Note Signed Patient: Cash Valle MR#: [id number] : 1950 Acct:[id number] Age/Sex: 74 / M Adm Date: 5 Loc: ER Room: Type: [facility] ER Attending Dr: Copies to: MD Keegan Izaguirre MD Sandra D Weaver-Emery, DO~ Providers Consult Date: 03/21/25 Primary Care Provider: DO ANTONINO Perez Reason for Consult: Clotted AV fistula History of Present Illness: This is a 74-year-old male with a medical history of ESRD, DM, HTN, ILIANA, PAD is admitted for clotted AV fistula patient has a 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 He initially presented to the outpatient dialysis for his routine dialysis yesterday and was found to have a clotted AV fistula. Patient was sent to the hospital and was seen by the vascular surgery. He had fistulogram with thrombectomy. Patient was started on dialysis after thrombectomy but unfortunately had again clotting of his AV fistula. Patient was sent to the emergency room for admission. Vascular surgery was consulted. Patient was seen by the vascular surgery and had attempted catheter placement. He will need declotting of his fistula tomorrow. Patient was seen examined bedside during dialysis. He was upset because of being fasting for such along.. Review of Systems Review of Systems All other systems reviewed & are negative unless noted below or in HPI Review of systems: Cardiovascular: denies any chest pain, palpitation Pulmonary: denies any cough, hemoptysis Gastrointestinal: denies any nausea, vomiting, diarrhea Neurological :denies any headache, numbness, weakness Endocrine: denies any polyuria, polydipsia Dermatological: denies any itching or rash [facility] Medical History (Updated 03/21/25 @ 00:41 by Keegan Riddle MD) Dialysis AV fistula malfunction CPAP (continuous positive airway pressure) dependence Wheelchair dependence Dialysis patient Tue- Anemia of renal disease Secondary hyperparathyroidism PAD (peripheral artery disease) Charcot foot due to diabetes mellitus AV fistula left Arthritis Sleep apnea has machine but not using Neuropathy Psoriasis Chronic kidney disease (CKD) Osteoarthritis Diabetes Surgical History History of left above knee amputation History of knee replacement procedure of left knee History of throat surgery Hx of cataract surgery bilateral History of cholecystectomy History of shoulder surgery left Previous back surgery lumbar Family History Family/Other Diabetes Brother Prostate cancer Hypertension Sister Hypertension Father Parkinsons disease Mother Lupus Brother Hypertension Legacy FamHx Relation: Brother(s) Sister Hypertension Social History Smoking Status: Former smoker Tobacco Type: cigarettes Substance Use Type: None Meds Medications & Allergies Allergies No Known Allergies Allergy (Verified 03/20/25 20:06) Home Medications insulin aspart U-100 100 unit/mL (3 mL) subcutaneous pen (Novolog FlexPen U-100 Insulin aspart) 1 sliding scale dose subcut TIDWM 04/06/21 [History Confirmed 03/20/25] insulin degludec 100 unit/mL (3 mL) subcutaneous pen (Tresiba FlexTouch U-100 insulin) 30 unit subcut QHS 09/02/23 [History Confirmed 03/20/25] calcium acetate(phosphat bind) 667 mg capsule 2,001 mg PO TIDWMEAL 10/22/24 [History Confirmed 03/20/25] furosemide 40 mg tablet See Rx Instructions .Route .COMPLEX #360 tabs 11/27/24 [Rx Confirmed 03/20/25] Active Medications: Active Medications Darbepoetin Luis (Darbepoetin Luis In Polysorbat 25 Mcg/Ml Vial) 25 mcg IV- PUSHTH OANH; Protocol Stop: 03/21/26 10:14 Heparin Sodium (Porcine) (Heparin 10,000 Unit/10 Ml Vial) 3,000 unit IV PRN PRN PRN Reason: Dialysis Stop: 03/21/26 10:10 Heparin Sodium (Porcine) (Heparin 10,000 Unit/10 Ml Vial) 1,500 unit IV PRN PRN PRN Reason: Dialysis Stop: 03/21/26 10:10 Sodium Chloride (0.9% Sodium Chloride 1,000 Ml) 1,000 mls @ 0 mls/hr MISCELLANE.Q0M PRN PRN Reason: Dialysis Stop: 03/21/26 08:42 Paricalcitol (Paricalcitol 10 Mcg/2 Ml Vial) 2 mcg IV-PUSH ONCE PRN PRN Reason: Dialysis Stop: 03/21/26 10:10 Sodium Chloride (Sodium Chloride 0.9 % 10 Ml Syringe) 0 ml IV-PUSH PRN PRN PRN Reason: Flush Stop: 03/20/26 20:04 Last Admin: 03/21/25 10:00 Dose: 10 ml Sodium Chloride (Sodium Chloride 0.9 % 10 Ml Syringe) 0 ml IV-PUSH PRN PRN PRN Reason: Flush Stop: 03/21/26 08:42 Exam Physical Exam Vital Signs: Temp Pulse Resp BP Pulse Ox O2 Del Method O2 Flow Rate 97.5 F L 73 16 116/67 95 Room Air 4 03/21/25 10:20 03/21/25 10:20 03/21/25 10:20 03/21/25 10:20 03/21/25 10:20 03/21/25 10:20 03/21/25 10:00 Narrative: General: Appears comfortable and not in distress Heart: S1-S2, no rub Lung: Bilateral air entry, no wheezing or crackles Abdomen: Soft, positive bowel sounds Extremities: No edema, no cyanosis Head: Atraumatic, normocephalic Ear: No gross hearing Deficit or external ear redness Eyes: No pallor or redness Neck: No JVD or visible mass Skin: No rashes , warm to touch DOBBY LOOMS PEGGER: Awake,Alert, following simple command Musculoskeletal: No swelling or limitation of movement of the large joints Psychiatric: Cooperative, normal mood and affect Results - Nephrology Labs 03/20/25 22:58 Labs: 03/20/25 22:58 BUN 75 H Creatinine 6.11 H Radiology Impressions Impressions - last 24 hours: Any impression(s) listed above is documentation that was entered by the reading physician into a diagnostic report(s) for Cash Valle. I have reviewed the report(s) and am incorporating any findings in the treatment plan of this patient where applicable. A&P - Nephrology Assessment/Plan (1) Dialysis AV fistula malfunction: Plan: Patient presented with clotted left upper extremity AV fistula and had declotting attempted yesterday but was unsuccessful. He has a temporary HD catheter. (2) End-stage renal disease (ESRD): Plan: Patient has end-stage disease from hypertensive and diabetic nephropathy. Currently goes to the [facility] unit on Tuesday for hemodialysis. (3) Anemia of renal disease: Plan: Hemoglobin is at target for end-stage renal disease (4) Secondary hyperparathyroidism: Assessment/Problem Details: He has a second hyperparathyroidism and currently takes IV Zemplar with dialysis. He also takes phosphate binders. Plan * Hemodialysis session today as ordered. * Hyperkalemia should correct with dialysis * Declotting of clotted h left upper extremity AV fistula will be attempted again tomorrow. Vascular surgery is following the patient * Will continue outpatient dose of the Zemplar with dialysis * Thanks for consult. Will continue to follow with you. Please free to call us with any question. * Plan of care was discussed with the vascular team as well as the ER physician. Documented By: Arnav Oliver MD 03/21/25 1102 Signed By: <Electronically signed by Arnav Oliver MD> 03/21/25 1201 History & Physical Note Author Jamil Michaud [facility] Note Date/Time March 21, 2025 2:18pm [facility] [address] [place] [address] Hospitalist H&P Signed Patient: Cash Valle MR#: [id number] : 1950 Acct:[id number] Age/Sex: 74 / M Adm Date: 5 Loc: 3T Room: [address] [place] [address] Type: ADM IN Attending Dr: Jamil Michaud MD Copies to: MD Daisha Zaldivar,DO~ HPI DATE OF EXAMINATION: 03/21/25 CHIEF COMPLAINT: LUE Fistula Failure HISTORY OF PRESENT ILLNESS: Cash Valle is a 74 y/o M, h/o DM, HTN, ILIANA, PAD, ESRD with LUE fistula s/p thrombectomy on 03/20/25, presented to [facility] ER 03/20/25 due to recurrence of fistula thrombosis prompting request for medical admission. On assessment at bedside in dialysis, patient resting in bed, tired appearing, s/p femoral temporary dialysis catheter placement. Denies any chest pain at thistime, does have some nausea and abdominal discomfort, new onset. Denies any vomiting, has not had bowel movement today, no substernal chest pain. Had 1.4 L fluid removed, was 2 liters above dry weight, switched to even. In the ER, sodium 133, potassium 5.6, BUN 75, creatinine 6.11, glucose 215. Review of Systems Review of Systems All other systems reviewed & are negative unless noted below or in HPI [facility] Medical History (Updated 03/21/25 @ 00:41 by Keegan Riddle MD) Dialysis AV fistula malfunction CPAP (continuous positive airway pressure) dependence Wheelchair dependence Dialysis patient Mon-Wed-Tue Anemia of renal disease Secondary hyperparathyroidism PAD (peripheral artery disease) Charcot foot due to diabetes mellitus AV fistula left Arthritis Sleep apnea has machine but not using Neuropathy Psoriasis Chronic kidney disease (CKD) Osteoarthritis Diabetes Surgical History History of left above knee amputation History of knee replacement procedure of left knee History of throat surgery Hx of cataract surgery bilateral History of cholecystectomy History of shoulder surgery left Previous back surgery lumbar Family History Family/Other Diabetes Brother Prostate cancer Hypertension Sister Hypertension Father Parkinsons disease Mother Lupus Brother Hypertension Legacy FamHx Relation: Brother(s) Sister Hypertension Social History Smoking Status: Former smoker Tobacco Type: cigarettes Substance Use Type: None Meds Medications and Allergies Allergies No Known Allergies Allergy (Verified 03/20/25 20:06) Home Medications insulin aspart U-100 100 unit/mL (3 mL) subcutaneous pen (Novolog FlexPen U-100 Insulin aspart) 1 sliding scale dose subcut TIDWM 04/06/21 [History Confirmed 03/20/25] insulin degludec 100 unit/mL (3 mL) subcutaneous pen (Tresiba FlexTouch U-100 insulin) 30 unit subcut QHS 09/02/23 [History Confirmed 03/20/25] calcium acetate(phosphat bind) 667 mg capsule 2,001 mg PO TIDWMEAL 10/22/24 [History Confirmed 03/20/25] furosemide 40 mg tablet See Rx Instructions .Route .COMPLEX #360 tabs 11/27/24 [Rx Confirmed 03/20/25] Exam Physical Exam Vital Signs: Temp Pulse Resp BP Pulse Ox O2 Del Method O2 Flow Rate 97.5 F L 72 16 105/62 95 Room Air 4 03/21/25 10:20 03/21/25 12:04 03/21/25 10:20 03/21/25 12:04 03/21/25 10:20 03/21/25 10:20 03/21/25 10:00 Narrative: General: cooperative and tired appearing Orientation: alert, awake and oriented x3 Head: normal to inspection Neck: normal visual inspection Cardio: no JVD, regular rate, regular rhythm Chest palpation & inspection: normal inspection of the chest Resp Effort & Inspection: normal respiratory effort Abd: soft, non-tender, non-distended Extremities: Warm well perfused, no edema, LUE fistula with absent thrill, RLE femoral dialysis catheter in place Results - Hospitalist H&P Lab Results Labs: Laboratory Last Values PHA Creatinine Clear 13.83 03/20/25 22:58 Sodium 133 mmol/L (136-145) L 03/20/25 22:58 Potassium 5.6 mmol/L (3.5-5.1) H 03/20/25 22:58 Chloride 104 mmol/L (98-107) 03/20/25 22:58 Carbon Dioxide 20.1 mmol/L (21.0-31.0) L 03/20/25 22:58 Anion Gap 14.5 mEq/L (6.0-15.0) 03/20/25 22:58 BUN 75 mg/dL (7-25) H 03/20/25 22:58 Creatinine 6.11 mg/dL (0.70-1.30) H 03/20/25 22:58 Est GFR (CKD-EPI) 9.056 mL/Min 03/20/25 22:58 Glucose 215 mg/dL (70-100) H D 03/20/25 22:58 POC Glucose 166 mg/dl 03/21/25 11:10 Calcium 9.4 mg/dL (8.6-10.3) 03/20/25 22:58 Assessment & Plan Assessment/Plan (1) Arteriovenous shunt malfunction: (2) End-stage renal disease on hemodialysis: (3) Type 2 diabetes mellitus with diabetic chronic kidney disease: (4) Benign hypertension with end-stage renal disease: Plan Cash Valle is a 74 y/o M, h/o DM, HTN, ILIANA, PAD, ESRD with LUE fistula s/p thrombectomy on 03/20/25, presented to [facility] ER 03/20/25 due to recurrence of fistula thrombosis prompting request for medical admission. 1. LUE AV fistula failure despite open thrombectomy on 03/20/25 - In the ER, sodium 133, potassium 5.6, BUN 75, creatinine 6.11, glucose 215. - now s/p R femoral dialysis catheter placement - nephrology and vascular consulted 2. Fatigue and nausea in the setting of multiple recent procedures - ok for renal diet at this time, compazine for nausea - likely fatigue from reduced PO, multiple rounds of sedation - check CBC and monitor - low threshold for infectious work up if spiking fevers 3. h/o DM, HTN, ILIANA, PAD - continue tresiba 30 units and SSI #2 - continue lasix Diet: renal Daily Labs: CBC, BMP Lines/Drains: PIV, R femoral HD cath d0 DVT ppx: sqh 5k q8h Code status: Full Status: inpatient IP vs OBS Justification Based on differential dx, clinical care plan, and risk of adverse events, if untreated, in my clinical judgement this patient requires an acute care setting as: INPATIENT because of an expectation of an over 2 midnight stay. Estimated length of stay (# of days): 3 Documented By: Jamil Michaud MD 03/21/25 1227 Signed By: <Electronically signed by Jamil Michaud MD> 03/21/25 1418 Progress Note Author Jamil Michaud [facility] Note Date/Time March 22, 2025 2:02pm [facility] [address] [place] [address] Hospitalist Progress Note Signed Patient: Cash Valle MR#: [id number] : 1950 Acct:[id number] Age/Sex: 74 / M Adm Date: 5 Loc: 3T Room: [address] [place] [address] Type: ADM IN Attending Dr: aJmil Michaud MD Copies to: ~ Date of Service: 03/22/2025 Subjective Subjective Narrative: Seen in dialysis post thrombectomy, patient tolerating dialysis slight nausea asyesterday but improved overall. Exam Physical Exam Vital Signs: Temp Pulse Resp BP Pulse Ox O2 Del Method O2 Flow Rate 97.5 F L 77 16 118/73 99 Room Air 2 03/21/25 20:07 03/22/25 01:42 03/22/25 01:42 03/22/25 01:42 03/22/25 01:42 03/22/25 01:42 03/21/25 14:08 Narrative: General: cooperative and tired appearing Orientation: alert, awake and oriented x3 Head: normal to inspection Neck: normal visual inspection Cardio: no JVD, regular rate, regular rhythm Chest palpation & inspection: normal inspection of the chest Resp Effort & Inspection: normal respiratory effort Abd: soft, non-tender, non-distended Extremities: Warm well perfused, no edema, LUE fistula with strong thrill, RLE femoral dialysis catheter in place Objective Lab Results 03/22/25 06:58 03/22/25 03:50 Meds Allergies and Active Meds Allergies No Known Allergies Allergy (Verified 03/20/25 20:06) Active Meds: Active Medications Generic Name Dose Route Start Last Admin Trade Name Freq PRN Reason Stop Dose Admin Acetaminophen 1,000 mg 03/21/25 21:33 03/21/25 22:29 Acetaminophen 500 Mg Tablet PO 03/21/26 21:32 1,000 mg Q6H PRN Administration Fever or Pain Calcium Acetate 2,001 mg 03/21/25 17:00 03/21/25 16:30 Calcium Acetate 667 Mg Capsule PO 03/21/26 16:59 2,001 mg TID.WITH.MEALS OANH Administration Calcium Carbonate 1,000 mg 03/22/25 00:47 03/22/25 01:10 Calcium Carbonate 500 Mg Tab.Chew PO 03/22/26 00:46 1,000 mg Q4H PRN Administration Dyspepsia Darbepoetin Luis 25 mcg 03/21/25 10:15 03/21/25 12:55 Darbepoetin Luis In Polysorbat 25 Mcg/Ml Vial IV-PUSH 03/21/26 10:14 25 mcg TH OANH Administration Protocol Dextrose 0 gm 03/21/25 14:15 Dextrose 50% In Water 25 Gm/50 Ml Syringe IV-PUSH 03/21/26 14:14 PRN PRN Hypoglycemia Furosemide 80 mg 03/21/25 16:00 03/21/25 16:31 Furosemide 40 Mg Tablet PO 03/21/26 15:59 80 mg BID@0800,1600 OANH Administration Glucose 0 gm 03/21/25 14:15 Dextrose 40% Gel 15 Gm Tube PO 03/21/26 14:14 PRN PRN Hypoglycemia Heparin Sodium (Porcine) 3,000 unit 03/21/25 10:11 03/21/25 11:11 Heparin 10,000 Unit/10 Ml Vial IV 03/21/26 10:10 3,000 unit PRN PRN Administration Dialysis Heparin Sodium (Porcine) 1,500 unit 03/21/25 10:11 03/21/25 11:11 Heparin 10,000 Unit/10 Ml Vial IV 03/21/26 10:10 1,500 unit PRN PRN Administration Dialysis Heparin Sodium (Porcine) 5,000 unit 03/21/25 22:00 03/22/25 05:10 Heparin 5,000 Unit/Ml Vial SUBCUT 03/21/26 21:59 Not Given Q8HR OANH Sodium Chloride 1,000 mls @ 0 mls/hr 03/21/25 08:43 03/21/25 11:15 0.9% Sodium Chloride 1,000 Ml MISCELLANE 03/21/26 08:42 Infused .Q0M PRN Infusion Dialysis As Directed Lactated Ringer's 1,000 mls @ 20 mls/hr 03/22/25 06:00 03/22/25 05:06 Lactated Ringers IV 03/23/25 05:59 20 mls/hr .Q24H ONE Administration Sodium Chloride 500 mls @ 20 mls/hr 03/22/25 06:00 0.9% Sodium Chloride 500 Ml IV 03/22/26 05:59 .Q24H OANH Vancomycin HCl 1.75 gm/ 500 mls @ 285.714 mls/hr 03/22/25 07:30 Dextrose IV 03/22/25 09:14 ONCE ONE Insulin Aspart 0 units 03/21/25 17:00 03/21/25 21:23 Insulin Aspart 300 Units/3 Ml SUBCUT 03/21/26 16:59 5 units TID.WM.HS OANH Administration Protocol Insulin Glargine 24 units 03/21/25 22:00 03/21/25 21:21 Insulin Glargine 300 Units/3 Ml Insuln.Pen SUBCUT 03/21/26 21:59 24 units QHS OANH Administration Lidocaine HCl 0.1 ml 03/22/25 06:00 Lidocaine 1% 50 Ml Vial INTRADERMA PREOP PRN Venipuncture x 1 Dose Ondansetron HCl 4 mg 03/21/25 11:24 03/21/25 11:00 Ondansetron 4 Mg/2 Ml Vial IV-PUSH 03/21/26 11:23 4 mg Q6H PRN Administration Nausea And Vomiting Paricalcitol 2 mcg 03/21/25 10:11 03/21/25 11:12 Paricalcitol 10 Mcg/2 Ml Vial IV-PUSH 03/21/26 10:10 2 mcg ONCE PRN Administration Dialysis Prochlorperazine Edisylate 5 mg 03/21/25 14:18 Prochlorperazine Edisylate 10 Mg/2 Ml Vial IV-PUSH 03/21/26 14:17 Q4H PRN Nausea And Vomiting Sodium Chloride 0 ml 03/20/25 20:05 03/21/25 10:00 Sodium Chloride 0.9 % 10 Ml Syringe IV-PUSH 03/20/26 20:04 10 ml PRN PRN Administration Flush Sodium Chloride 0 ml 03/21/25 08:43 03/21/25 11:12 Sodium Chloride 0.9 % 10 Ml Syringe IV-PUSH 03/21/26 08:42 40 ml PRN PRN Administration Flush Sodium Chloride 0 ml 03/22/25 06:00 Sodium Chloride 0.9 % 10 Ml Syringe IV-PUSH 03/22/26 05:59 PRN PRN Flush A&P - Hospitalist Assessment/Plan (1) Arteriovenous shunt malfunction: (2) End-stage renal disease on hemodialysis: (3) Type 2 diabetes mellitus with diabetic chronic kidney disease: (4) Benign hypertension with end-stage renal disease: Plan Cahs Valle is a 74 y/o M, h/o DM, HTN, ILIANA, PAD, ESRD with LUE fistula s/p thrombectomy on 03/20/25, presented to [facility] ER 03/20/25 due to recurrence of fistula thrombosis prompting request for medical admission. 1. LUE AV fistula failure despite open thrombectomy on 03/20/25 - In the ER, sodium 133, potassium 5.6, BUN 75, creatinine 6.11, glucose 215. - now s/p R femoral dialysis catheter placement and repeat thrombectomy - nephrology and vascular consulted - plan for dialysis catheter removal today after session 2. Fatigue and nausea in the setting of multiple recent procedures - ok for renal diet at this time, compazine for nausea - likely fatigue from reduced PO, multiple rounds of sedation - check CBC and monitor - continue to monitor for fevers 3. h/o DM, HTN, ILIANA, PAD - continue tresiba 30 units and SSI #2 - continue lasix Diet: renal Daily Labs: CBC, BMP Lines/Drains: PIV, R femoral HD cath d1 DVT ppx: sqh 5k q8h Code status: Full Status: inpatient Documented By: Jamil Michaud MD 03/22/25 0750 Signed By: <Electronically signed by Jamil Michaud MD> 03/22/25 1402 Progress Note Author Arnav Oliver [facility] Note Date/Time March 22, 2025 11:27am [facility] [address] [place] [address] Nephrology Progress Note Signed Patient: Cash Valle MR#: [id number] : 1950 Acct:[id number] Age/Sex: 74 / M Adm Date: 5 Loc: Room: [address] [place] [address] Type: ADM IN Attending Dr: Jamil Michaud MD Copies to: ~ Date of Service: 03/22/2025 Subjective Subjective Narrative: This is a 74-year-old male with a medical history of ESRD, DM, HTN, ILIANA, PAD is admitted for clotted AV fistula patient has a 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 He initially presented to the outpatient dialysis for his routine dialysis yesterday and was found to have a clotted AV fistula. Patient was sent to the hospital and was seen by the vascular surgery. He had fistulogram with thrombectomy. Patient was started on dialysis after thrombectomy but unfortunately had again clotting of his AV fistula. Patient was sent to the emergency room for admission. Vascular surgery was consulted. Patient was seen by the vascular surgery and had attempted catheter placement. He will need declotting of his fistula tomorrow. Interval history Patient was seen and examined at bedside. He had a thrombectomy of AVF/this morning. Denies any chest pain palpation cough nausea vomiting diarrhea shortness of breath Exam Physical Exam Vital Signs: Temp Pulse Resp BP Pulse Ox O2 Del Method O2 Flow Rate 97.3 F L 71 16 126/92 96 Room Air 6 03/22/25 09:38 03/22/25 10:08 03/22/25 10:08 03/22/25 10:08 03/22/25 10:08 03/22/25 10:08 03/22/25 09:38 Narrative: General: Appears comfortable and not in distress Heart: S1-S2, no rub Lung: Bilateral air entry, no wheezing or crackles Abdomen: Soft, positive bowel sounds Extremities: No edema, no cyanosis Head: Atraumatic, normocephalic Ear: No gross hearing Deficit or external ear redness Eyes: No pallor or redness Neck: No JVD or visible mass Skin: No rashes , warm to touch DOBBY LOOMS PEGGER: Awake,Alert, following simple command Musculoskeletal: No swelling or limitation of movement of the large joints Psychiatric: Cooperative, normal mood and affect Objective Intake and Output I&O: Intake & Output 03/19/25 03/20/25 03/21/25 03/22/25 23:59 23:59 23:59 23:59 Intake Total 700 / 700 170 / 170 Output Total 1900 / 1900 150 / 150 Balance -1200 / -1200 Weight 114 kg 116 kg 116.8 kg Meds and Allergies Meds: Active Medications Acetaminophen (Acetaminophen 500 Mg Tablet) 1,000 mg PO Q6H PRN PRN Reason: Fever or Pain Stop: 03/21/26 21:32 Last Admin: 03/21/25 22:29 Dose: 1,000 mg Calcium Acetate (Calcium Acetate 667 Mg Capsule) 2,001 mg PO TID.WITH.MEALS [facility] Stop: 03/21/26 16:59 Last Admin: 03/21/25 16:30 Dose: 2,001 mg Calcium Carbonate (Calcium Carbonate 500 Mg Tab.Chew) 1,000 mg PO Q4H PRN PRN Reason: Dyspepsia Stop: 03/22/26 00:46 Last Admin: 03/22/25 01:10 Dose: 1,000 mg Darbepoetin Luis (Darbepoetin Luis In Polysorbat 25 Mcg/Ml Vial) 25 mcg IV- PUSHTH [facility]; Protocol Stop: 03/21/26 10:14 Last Admin: 03/21/25 12:55 Dose: 25 mcg Dextrose (Dextrose 50% In Water 25 Gm/50 Ml Syringe) 0 gm IV-PUSH PRN PRN PRN Reason: Hypoglycemia Stop: 03/21/26 14:14 Furosemide (Furosemide 40 Mg Tablet) 80 mg PO BID@0800,1600 [facility] Stop: 03/21/26 15:59 Last Admin: 03/21/25 16:31 Dose: 80 mg Glucose (Dextrose 40% Gel 15 Gm Tube) 0 gm PO PRN PRN PRN Reason: Hypoglycemia Stop: 03/21/26 14:14 Heparin Sodium (Porcine) (Heparin 10,000 Unit/10 Ml Vial) 3,000 unit IV PRN PRN PRN Reason: Dialysis Stop: 03/21/26 10:10 Last Admin: 03/21/25 11:11 Dose: 3,000 unit Heparin Sodium (Porcine) (Heparin 10,000 Unit/10 Ml Vial) 1,500 unit IV PRN PRN PRN Reason: Dialysis Stop: 03/21/26 10:10 Last Admin: 03/21/25 11:11 Dose: 1,500 unit Heparin Sodium (Porcine) (Heparin 5,000 Unit/Ml Vial) 5,000 unit SUBCUT Q8HR [facility] Stop: 03/21/26 21:59 Last Admin: 03/22/25 05:10 Dose: Not Given Sodium Chloride (0.9% Sodium Chloride 1,000 Ml) 1,000 mls @ 0 mls/hr MISCELLANE.Q0M PRN PRN Reason: Dialysis Stop: 03/21/26 08:42 Last Infusion: 03/21/25 11:15 Dose: Infused Lactated Ringer's (Lactated Ringers) 1,000 mls @ 20 mls/hr IV .Q24H ONE Stop: 03/23/25 05:59 Last Infusion: 03/22/25 08:15 Dose: 0 mls/hr Sodium Chloride (0.9% Sodium Chloride 500 Ml) 500 mls @ 20 mls/hr IV .Q24H OANH Stop: 03/22/26 05:59 Lactated Ringer's (Lactated Ringers) 1,000 mls @ 20 mls/hr IV .Q24H ONE Stop: 03/23/25 08:01 Sodium Chloride (0.9% Sodium Chloride 500 Ml) 500 mls @ 20 mls/hr IV ONCE ONE Stop: 03/23/25 09:01 Last Admin: 03/22/25 08:05 Dose: 20 mls/hr Insulin Aspart (Insulin Aspart 300 Units/3 Ml) 0 units SUBCUT TID.[facility]; Protocol Stop: 03/21/26 16:59 Last Admin: 03/21/25 21:23 Dose: 5 units Insulin Glargine (Insulin Glargine 300 Units/3 Ml Insuln.Pen) 24 units SUBCUT QHS [facility] Stop: 03/21/26 21:59 Last Admin: 03/21/25 21:21 Dose: 24 units Insulin Human Regular (Insulin Regular, Human 1,000 Unit/10 Ml) 0 unit SUBCUT PROTOCOL PRN; Protocol PRN Reason: Hyperglycemia Stop: 03/22/25 20:03 Last Admin: 03/22/25 07:27 Dose: 3 unit Lidocaine HCl (Lidocaine 1% 50 Ml Vial) 0.1 ml INTRADERMA PREOP PRN PRN Reason: Venipuncture x 1 Dose Lidocaine HCl (Lidocaine 1% 50 Ml Vial) 0.1 ml INTRADERMA PREOP PRN PRN Reason: Venipuncture x 1 Dose Ondansetron HCl (Ondansetron 4 Mg/2 Ml Vial) 4 mg IV-PUSH Q6H PRN PRN Reason: Nausea And Vomiting Stop: 03/21/26 11:23 Last Admin: 03/21/25 11:00 Dose: 4 mg Paricalcitol (Paricalcitol 10 Mcg/2 Ml Vial) 2 mcg IV-PUSH ONCE PRN PRN Reason: Dialysis Stop: 03/21/26 10:10 Last Admin: 03/21/25 11:12 Dose: 2 mcg Prochlorperazine Edisylate (Prochlorperazine Edisylate 10 Mg/2 Ml Vial) 5 mg IV- PUSH Q4H PRN PRN Reason: Nausea And Vomiting Stop: 03/21/26 14:17 Sodium Chloride (Sodium Chloride 0.9 % 10 Ml Syringe) 0 ml IV-PUSH PRN PRN PRN Reason: Flush Stop: 03/20/26 20:04 Last Admin: 03/21/25 10:00 Dose: 10 ml Sodium Chloride (Sodium Chloride 0.9 % 10 Ml Syringe) 0 ml IV-PUSH PRN PRN PRN Reason: Flush Stop: 03/21/26 08:42 Last Admin: 03/21/25 11:12 Dose: 40 ml Sodium Chloride (Sodium Chloride 0.9 % 10 Ml Syringe) 0 ml IV-PUSH PRN PRN PRN Reason: Flush Stop: 03/22/26 05:59 Allergies No Known Allergies Allergy (Verified 03/20/25 20:06) Results - Nephrology Labs 03/22/25 06:58 03/22/25 03:50 Labs: 03/22/25 03:50 BUN 44 H D Creatinine 4.12 H D Phosphorus 5.2 H Albumin 3.5 Radiology Impressions Impressions - last 24 hours: Any impression(s) listed above is documentation that was entered by the reading physician into a diagnostic report(s) for [facility]. I have reviewed the report(s) and am incorporating any findings in the treatment plan of this patient where applicable. A&P - Nephrology Assessment/Plan (1) End-stage renal disease (ESRD): Plan: Patient has end-stage disease from hypertensive and diabetic nephropathy. Currently goes to the [facility] unit on Tuesday for hemodialysis. (2) Dialysis AV fistula malfunction: Plan: Patient presented with clotted left upper extremity AV fistula and had declotting attempted yesterday but was unsuccessful. He has a temporary HD catheter. (3) Anemia of renal disease: Plan: Hemoglobin is at target for end-stage renal disease (4) Secondary hyperparathyroidism: Assessment/Problem Details: He has a second hyperparathyroidism and currently takes IV Zemplar with dialysis. He also takes phosphate binders. (5) Type 2 diabetes mellitus with diabetic chronic kidney disease: Assessment/Problem Details: He has insulin-dependent type 2 diabetes mellitus and currently takes insulin Tresiba. Plan * Hemodialysis session today as ordered. * Will continue outpatient dose of the Zemplar with dialysis * Will continue outpatient dose of the Aranesp once weekly with dialysis. * Continue home dose of the calcium acetate. * Continue DM management as per the primary hospice team. * Check renal function daily. Documented By: Arnav Oliver MD 03/22/25 1115 Signed By: <Electronically signed by Arnav Oliver MD> 03/22/25 1123
--- NOTE | 2025-03-28 14:34 | PM.WCHP ---
Wound Care H&P: HPI History of Present Illness Narrative: Luca is a 74 year old gentleman with history of ESRD and previous non-traumatic left AKA who presents for routine nail care. His was concerned for apparent bleeding under the second toenail. He has no complaints in regards to his foot at this time. Exam Narrative: Exam Narrative: Derm: toenails of the right foot are thickened, mycotic, and elongated. There is apparent subungual hematoma under the 2nd toenail with no paronychia. Bleeding present upon nail trimming. Post debridement, there is no nailbed laceration or SOI. Skin of the lower leg is dry and hemosiderin stained. Vascular: hemosiderin staining present in the RLE. PT and DP pulses are nonpalpable. Neruo: achiles DTR absent. Protective sensation is absent. Vibratory sensation is absent. MSK: Left foot and lower leg is absent. Right foot no gross deformity. ROM right foot and ankle is WNL. Assessment and Plan Assessment and Plan (1) Tinea unguium: (2) Onycholysis of toenail: (3) History of above-knee amputation of left lower extremity: (4) Type 2 diabetes mellitus with diabetic neuropathy, unspecified: (5) Diminished pulses in lower extremity: (6) Abnormality of gait due to impairment of balance: Plan Routine toenail care performed on the right foot. Second toenail was noted to be loose from the nailbed and was removed during debridement. No SOI. Followup in 3 months, sooner if any SOI develop. Acute Procedures Podiatry Nail Debridement Class A Findings Class A findings: non-traumatic amputation of foot or integral skeletal portion thereof Class B Findings Absent posterior tibial pulse: right Advanced trophic changes as evidenced by any three of the following: decreased hair growth, nail changes (thickening), pigmentary changes (discoloring) and skin texture (thin or shiny) Absent dorsalis pedis pulse: right Class C Findings Claudication: No Temperature changes: No Edema: Yes Nail debridement paresthesia (abnormal spontaneous sensations in the feet): No Burning: No Qualifies If: Qualifiers If:: A patient qualifies for nail debridement if they have: 1 class A finding (Q7) 2 class B findings (Q8) OR 1 class B & 2 class C findings in addition to a primary condition (Q9) Nail Procedure Nail Procedure Time out: Yes Nail procedure: other (toenail debridement 5 toes on the right foot) Number of affected nails: 5 Location (toes): right Procedure successful: Yes Patient tolerated procedure: well Complications: other (right 2nd toenail was noted to be loose from the nailbed. During debridement the nail was removed in its entirety using nail nippers. Anesthesia was not necessary. No SOI encountered.) Additional comments: Toenails of the right foot were debrided to the patient's satisfaction. 2nd nail removed due to onycholysis s above.
== END 2025-03-28 13:52 | disposition home or self-care (01) ==
LOC: WC 13:52
PROVIDERS: Visit Provider Physician Assistant
DX: B35.1 Tinea unguium (principal); L60.1 Onycholysis; Z89.612 Acquired absence of left leg above knee; E11.40 Type 2 diabetes mellitus with diabetic neuropathy, unspecified; R09.89 Other specified symptoms and signs involving the circulatory and respiratory systems; R26.89 Other abnormalities of gait and mobility
CPT/HCPCS: 11720